=== PATIENT | female | born 1945 | race Caucasian/White ===

== ENCOUNTER 2022-08-26 23:44 | Inpatient (IN) | payer OTHER ==
[~2022-08-26] VITALS: Ht 160 cm; Wt 86.2 kg
[~2022-08-26 23:44] MED LIST: ALBUPOW26 INH; LISI-275 PO; METF-370 PO; PANT40TA2 PO; PROAIR; SIMV10TA84 PO
[2022-08-27] VITALS (10 sets, daily range): BP systolic 115–138; BP diastolic 74–90
[2022-08-27 00:14] LABS: Basophils # (auto) 0.1 10 ^3/uL (0-0.2); Basophils % (auto) 0.4 % (0.0-2.0); Eosinophils # (auto) 0 10 ^3/uL (0-0.8); Hematocrit 40.9 % (36.0-46.0); Hemoglobin 13.2 g/dL (12.2-16.2); Lymphocytes # (auto) 2.8 10 ^3/uL (0.4-5.4); Lymphocytes % (auto) 10.3 % (10.0-50.0); Mean Corpuscular Hemoglobin 29.5 pg (28.0-32.0); Mean Corpuscular Hgb Conc. 32.3 g/dL (32.0-36.0); Mean Corpuscular Volume 91.3 fL (80.0-100.0); Monocytes # (auto) 3.3 10 ^3/uL (0-1.3); Monocytes % (auto) 12.1 % (0.0-12.0); Neutrophils # (auto) 20.8 10 ^3/uL (1.6-8.6); Neutrophils % (auto) 77.2 % (37.0-80.0); Red Blood Cells 4.48 10^6/uL (4.0-5.20); Red Cell Distribution Width 13.3 % (11.8-14.3)
[2022-08-27 00:29] LABS: Albumin 2.7 g/dL (3.4-5.0); BUN/Creatinine Ratio 20.6; Calcium 8.8 mg/dL (8.5-10.1); Potassium 4.3 mmol/L (3.5-5.1)
[2022-08-27 00:31] LABS: INR 1.05 (0.9-1.15); Partial Thromboplastin Time 25.6 sec (24.6-33.4)
[2022-08-27 00:32] LABS: Bilirubin, Total 1.3 mg/dL (0.2-1.0); Total Protein 6.4 g/dL (6.4-8.2)
[2022-08-27] MEDS ORDERED: methylPREDNISolone SOD SUCC 125 MG/2 ML VL IV ONE (01:00)
[2022-08-27] MEDS ORDERED: ALBUTEROL SULF 2.5 MG/0.5ML(0.5%) NEB SOLN NEB ONE (01:00)
[2022-08-27] MEDS ORDERED: IPRATROPIUM BROM 0.5 MG/2.5ML INH SOL NEB ONE (01:00)
[2022-08-27] MEDS ORDERED: DOCUSATE SOD 100 MG CAP PO PRN (10:15)
[2022-08-27] MEDS ORDERED: DEXTROSE (50%) 50ML SYRG IV PRN (10:15)
[2022-08-27] MEDS ORDERED: ONDANSETRON HCL 4 MG/2 ML VIAL IV PRN (10:15)
[2022-08-27 12:05] LABS: Urine Specific Gravity 1.027 (1.001-1.035)
[2022-08-27 12:06] LABS: Urine Blood Negative /uL (Negative)
[2022-08-27] MEDS: InsuLIN REG 1unit/0.01ml Soln (100units/ml) SC SCH ×3 (12:09→23:11)
[2022-08-27] MEDS: ACCU-CHEK COMFORT CURVE STRIP VI SCH ×3 (12:10→22:52)
[2022-08-27] MEDS: methylPREDNISolone SOD SUCC 125 MG/2 ML VL IV SCH ×2 (14:35→22:51)
[2022-08-27] MEDS: LORazepam 2MG/ML-1ML VIAL IV PRN (17:25)
[2022-08-27] MEDS: ALBUTEROL SULF 2.5 MG/0.5ML(0.5%) NEB SOLN NEB PRN (18:28)
[2022-08-27] MEDS: PRAVASTATIN SODIUM 20 MG TAB PO SCH (22:52)
[2022-08-28] VITALS (7 sets, daily range): BP systolic 102–135; BP diastolic 42–83
[2022-08-28] MEDS: LORazepam 2MG/ML-1ML VIAL IV PRN ×2 (00:33→09:25)
[2022-08-28] MEDS: FLUTICASONE PROP NASAL SPR 0.05 % (50MCG) 16GM EACHNOSTRI SCH ×3 (00:35→21:23)
[2022-08-28] MEDS: IPRATROPIUM BROM 0.5 MG/2.5ML INH SOL NEB PRN ×2 (01:10→16:51)
[2022-08-28] MEDS: ALBUTEROL SULF 2.5 MG/0.5ML(0.5%) NEB SOLN NEB PRN ×2 (01:10→16:51)
[2022-08-28 05:49] LABS: Basophils # (auto) 0 10 ^3/uL (0-0.2); Basophils % (auto) 0.1 % (0.0-2.0); Eosinophils # (auto) 0 10 ^3/uL (0-0.8); Hematocrit 39.1 % (36.0-46.0); Hemoglobin 12.4 g/dL (12.2-16.2); Lymphocytes # (auto) 0.8 10 ^3/uL (0.4-5.4); Lymphocytes % (auto) 3.6 % (10.0-50.0); Mean Corpuscular Hgb Conc. 31.8 g/dL (32.0-36.0); Mean Corpuscular Volume 91.1 fL (80.0-100.0); Monocytes # (auto) 2.4 10 ^3/uL (0-1.3); Monocytes % (auto) 10.1 % (0.0-12.0); Neutrophils # (auto) 20.4 10 ^3/uL (1.6-8.6); Neutrophils % (auto) 86.2 % (37.0-80.0); Red Blood Cells 4.29 10^6/uL (4.0-5.20); Red Cell Distribution Width 12.9 % (11.8-14.3); White Blood Cell 23.7 10^3/uL (4.4-10.8)
[2022-08-28 05:50] LABS: Calcium 9.3 mg/dL (8.5-10.1); Potassium 4.7 mmol/L (3.5-5.1)
[2022-08-28 05:56] LABS: Albumin 2.4 g/dL (3.4-5.0); BUN/Creatinine Ratio 38.6; Bilirubin, Total 1.5 mg/dL (0.2-1.0); Total Protein 5.9 g/dL (6.4-8.2)
[2022-08-28] MEDS: methylPREDNISolone SOD SUCC 125 MG/2 ML VL IV SCH ×3 (06:15→21:52)
[2022-08-28] MEDS: InsuLIN REG 1unit/0.01ml Soln (100units/ml) SC SCH ×4 (06:27→21:49)
[2022-08-28] MEDS: ACCU-CHEK COMFORT CURVE STRIP VI SCH ×4 (06:28→21:43)
[2022-08-28] MEDS: PANTOPRAZOLE 40 MG TAB PO SCH (09:23)
[2022-08-28] MEDS: LISINOPRIL 5 MG TAB PO SCH (09:24)
[2022-08-28] MEDS: ENOXAPARIN SOD 40 MG/0.4 ML SYRINGE SC SCH (09:25)
[2022-08-28] MEDS: cefTRIAXone 1GM/50ML D5W 50 ML IV SCH (09:25)
[2022-08-28] MEDS: AZITHROMYCIN 500MG/ 250ML 250 ML IV SCH (12:28)
[2022-08-28] MEDS: PRAVASTATIN SODIUM 20 MG TAB PO SCH (21:51)
[2022-08-29 05:00] VITALS: BP 126/69
[2022-08-29 06:16] LABS: Hematocrit 38.7 % (36.0-46.0); Hemoglobin 12.7 g/dL (12.2-16.2); Mean Corpuscular Hemoglobin 29.7 pg (28.0-32.0); Mean Corpuscular Hgb Conc. 32.8 g/dL (32.0-36.0); Mean Corpuscular Volume 90.6 fL (80.0-100.0); Red Blood Cells 4.27 10^6/uL (4.0-5.20)
[2022-08-29] MEDS: methylPREDNISolone SOD SUCC 125 MG/2 ML VL IV SCH ×3 (06:19→23:55)
[2022-08-29 06:23] LABS: Basophils % (manual) 0 (0.0-2.0); Blast Cells 0; Eosinophils % (manual) 0 (0-7); Metamyelocytes % 0; Myelocytes % 0; Promyelocytes % 0; Reactive Lymphocytes 0
[2022-08-29] MEDS: ACCU-CHEK COMFORT CURVE STRIP VI SCH ×4 (06:34→22:00)
[2022-08-29] MEDS: InsuLIN REG 1unit/0.01ml Soln (100units/ml) SC SCH ×4 (06:38→23:53)
[2022-08-29 07:18] LABS: BUN/Creatinine Ratio 40.7; Magnesium 2.6 mg/dL (1.6-2.6); Potassium 4.9 mmol/L (3.5-5.1)
[2022-08-29] MEDS: LISINOPRIL 5 MG TAB PO SCH (08:21)
[2022-08-29] MEDS: PANTOPRAZOLE 40 MG TAB PO SCH (08:21)
[2022-08-29] MEDS: cefTRIAXone 1GM/50ML D5W 50 ML IV SCH (08:22)
[2022-08-29] MEDS: FLUTICASONE PROP NASAL SPR 0.05 % (50MCG) 16GM EACHNOSTRI SCH ×2 (08:22→22:00)
[2022-08-29] MEDS: AZITHROMYCIN 500MG/ 250ML 250 ML IV SCH (08:22)
[2022-08-29] MEDS: ENOXAPARIN SOD 40 MG/0.4 ML SYRINGE SC SCH (08:22)
[2022-08-29] MEDS: LORazepam 2MG/ML-1ML VIAL IV PRN (08:23)
[2022-08-29 08:45] VITALS: BP 141/77
[2022-08-29 10:44] LABS: Band Neutrophils % (manual) 46; Lymphocytes % (manual) 2 (10.0-50.0); Monocytes % (manual) 5 (0-12)
[2022-08-29] MEDS: HYDROcodone-ACET 5/325MG TAB PO PRN (11:27)
[2022-08-29 13:00] VITALS: BP 111/68
[2022-08-29] MEDS: ALPRAZolam 0.25 MG TAB PO PRN (15:05)
[2022-08-29] MEDS: IPRATROPIUM BROM 0.5 MG/2.5ML INH SOL NEB PRN (15:24)
[2022-08-29] MEDS: ALBUTEROL SULF 2.5 MG/0.5ML(0.5%) NEB SOLN NEB PRN (15:24)
[2022-08-29 17:00] VITALS: BP 124/65
[2022-08-29] MEDS: PRAVASTATIN SODIUM 20 MG TAB PO SCH (23:56)
[2022-08-30] VITALS (8 sets, daily range): BP systolic 118–168; BP diastolic 59–74
[2022-08-30] MEDS: ACCU-CHEK COMFORT CURVE STRIP VI SCH ×4 (07:04→21:44)
[2022-08-30] MEDS: InsuLIN REG 1unit/0.01ml Soln (100units/ml) SC SCH ×4 (07:07→21:51)
[2022-08-30] MEDS: methylPREDNISolone SOD SUCC 125 MG/2 ML VL IV SCH ×3 (07:09→21:40)
[2022-08-30] MEDS: cefTRIAXone 1GM/50ML D5W 50 ML IV SCH (08:24)
[2022-08-30] MEDS: ALPRAZolam 0.25 MG TAB PO PRN (08:24)
[2022-08-30] MEDS: FLUTICASONE PROP NASAL SPR 0.05 % (50MCG) 16GM EACHNOSTRI SCH ×2 (09:21→21:39)
[2022-08-30] MEDS: PANTOPRAZOLE 40 MG TAB PO SCH (09:21)
[2022-08-30] MEDS: LISINOPRIL 5 MG TAB PO SCH (09:21)
[2022-08-30] MEDS: AZITHROMYCIN 500MG/ 250ML 250 ML IV SCH (09:21)
[2022-08-30] MEDS: ENOXAPARIN SOD 40 MG/0.4 ML SYRINGE SC SCH (09:33)
[2022-08-30] MEDS: IPRATROPIUM BROM 0.5 MG/2.5ML INH SOL NEB PRN (09:55)
[2022-08-30] MEDS: ALBUTEROL SULF 2.5 MG/0.5ML(0.5%) NEB SOLN NEB PRN (09:55)
[2022-08-30] MEDS: ALBUTEROL SULF 2.5 MG/0.5ML(0.5%) NEB SOLN NEB SCH ×4 (10:00→22:27)
[2022-08-30] MEDS: IPRATROPIUM BROM 0.5 MG/2.5ML INH SOL NEB SCH ×4 (10:00→22:27)
[2022-08-30] MEDS: SALINE 0.65 % NASAL SPRAY 45ML BOTTLE EACHNOSTRI SCH ×3 (11:43→21:39)
[2022-08-30] MEDS: PRAVASTATIN SODIUM 20 MG TAB PO SCH (21:40)
[2022-08-31] MEDS: HYDROcodone-ACET 5/325MG TAB PO PRN (04:17)
[2022-08-31 05:32] VITALS: BP 149/84
[2022-08-31] MEDS: SALINE 0.65 % NASAL SPRAY 45ML BOTTLE EACHNOSTRI SCH ×4 (05:41→22:10)
[2022-08-31] MEDS: ALBUTEROL SULF 2.5 MG/0.5ML(0.5%) NEB SOLN NEB SCH ×5 (06:08→22:04)
[2022-08-31] MEDS: IPRATROPIUM BROM 0.5 MG/2.5ML INH SOL NEB SCH ×5 (06:08→22:04)
[2022-08-31] MEDS: ACCU-CHEK COMFORT CURVE STRIP VI SCH ×4 (06:12→22:20)
[2022-08-31] MEDS: InsuLIN REG 1unit/0.01ml Soln (100units/ml) SC SCH ×4 (06:13→22:21)
[2022-08-31 06:24] LABS: Hematocrit 38.7 % (36.0-46.0); Hemoglobin 12.4 g/dL (12.2-16.2); Mean Corpuscular Hemoglobin 29.3 pg (28.0-32.0); Mean Corpuscular Volume 91.6 fL (80.0-100.0); Red Blood Cells 4.23 10^6/uL (4.0-5.20); Red Cell Distribution Width 12.8 % (11.8-14.3); White Blood Cell 24.3 10^3/uL (4.4-10.8)
[2022-08-31 06:29] LABS: Potassium 5.2 mmol/L (3.5-5.1)
[2022-08-31 06:38] LABS: BUN/Creatinine Ratio 33.8; Magnesium 2.2 mg/dL (1.6-2.6)
[2022-08-31 07:02] LABS: Basophils % (manual) 0 (0.0-2.0); Blast Cells 0; Eosinophils % (manual) 0 (0-7); Metamyelocytes % 0; Myelocytes % 0; Promyelocytes % 0; Reactive Lymphocytes 0
[2022-08-31] MEDS: ALPRAZolam 0.25 MG TAB PO PRN ×2 (08:47→22:10)
[2022-08-31] MEDS: cefTRIAXone 1GM/50ML D5W 50 ML IV SCH (08:47)
[2022-08-31 09:00] VITALS: BP 138/80
[2022-08-31] MEDS: LISINOPRIL 5 MG TAB PO SCH (09:46)
[2022-08-31] MEDS: methylPREDNISolone SOD SUCC 125 MG/2 ML VL IV SCH ×2 (09:46→22:10)
[2022-08-31] MEDS: AZITHROMYCIN 500MG/ 250ML 250 ML IV SCH (09:47)
[2022-08-31] MEDS: PANTOPRAZOLE 40 MG TAB PO SCH (09:47)
[2022-08-31] MEDS: FLUTICASONE PROP NASAL SPR 0.05 % (50MCG) 16GM EACHNOSTRI SCH ×2 (09:47→22:10)
[2022-08-31] MEDS: ENOXAPARIN SOD 40 MG/0.4 ML SYRINGE SC SCH (09:48)
[2022-08-31 10:01] LABS: Band Neutrophils % (manual) 10; Lymphocytes % (manual) 8 (10.0-50.0); Monocytes % (manual) 2 (0-12)
[2022-08-31] MEDS ORDERED: FUROSEMIDE 40 MG/4 ML VIAL IV ONE (12:30)
[2022-08-31 13:00] VITALS: BP 165/83
[2022-08-31 16:37] VITALS: BP 162/85
[2022-08-31 20:00] VITALS: BP 144/87
[2022-08-31 22:00] VITALS: BP 144/87
[2022-08-31] MEDS: PRAVASTATIN SODIUM 20 MG TAB PO SCH (22:10)
[2022-09-01 05:00] VITALS: BP 130/79
[2022-09-01] MEDS: SALINE 0.65 % NASAL SPRAY 45ML BOTTLE EACHNOSTRI SCH ×4 (05:45→21:21)
[2022-09-01] MEDS: ACCU-CHEK COMFORT CURVE STRIP VI SCH ×4 (06:21→21:21)
[2022-09-01] MEDS: InsuLIN REG 1unit/0.01ml Soln (100units/ml) SC SCH ×4 (06:27→21:24)
[2022-09-01 06:30] LABS: Hematocrit 39.5 % (36.0-46.0); Hemoglobin 12.9 g/dL (12.2-16.2); Mean Corpuscular Hemoglobin 29.7 pg (28.0-32.0); Mean Corpuscular Hgb Conc. 32.6 g/dL (32.0-36.0); Red Blood Cells 4.34 10^6/uL (4.0-5.20); White Blood Cell 17.2 10^3/uL (4.4-10.8)
[2022-09-01 06:38] LABS: Basophils % (manual) 0 (0.0-2.0); Blast Cells 0; Eosinophils % (manual) 0 (0-7); Promyelocytes % 0; Reactive Lymphocytes 0
[2022-09-01] MEDS: ALBUTEROL SULF 2.5 MG/0.5ML(0.5%) NEB SOLN NEB SCH ×5 (06:38→23:02)
[2022-09-01] MEDS: IPRATROPIUM BROM 0.5 MG/2.5ML INH SOL NEB SCH ×5 (06:38→23:03)
[2022-09-01 06:53] LABS: Calcium 8.9 mg/dL (8.5-10.1); Potassium 4.6 mmol/L (3.5-5.1)
[2022-09-01 06:55] LABS: BUN/Creatinine Ratio 37.5
[2022-09-01 08:19] LABS: Band Neutrophils % (manual) 3; Lymphocytes % (manual) 6 (10.0-50.0); Metamyelocytes % 1; Monocytes % (manual) 4 (0-12); Myelocytes % 2
[2022-09-01] MEDS: ALPRAZolam 0.25 MG TAB PO PRN ×2 (08:44→16:41)
[2022-09-01] MEDS: cefTRIAXone 1GM/50ML D5W 50 ML IV SCH (08:44)
[2022-09-01 09:00] VITALS: BP 161/80
[2022-09-01] MEDS: methylPREDNISolone SOD SUCC 125 MG/2 ML VL IV SCH ×2 (10:29→21:22)
[2022-09-01] MEDS: PANTOPRAZOLE 40 MG TAB PO SCH (10:29)
[2022-09-01] MEDS: LISINOPRIL 5 MG TAB PO SCH (10:29)
[2022-09-01] MEDS: AZITHROMYCIN 500MG/ 250ML 250 ML IV SCH (10:30)
[2022-09-01] MEDS: FLUTICASONE PROP NASAL SPR 0.05 % (50MCG) 16GM EACHNOSTRI SCH ×2 (10:30→21:20)
[2022-09-01] MEDS: ENOXAPARIN SOD 40 MG/0.4 ML SYRINGE SC SCH (11:57)
[2022-09-01 13:00] VITALS: BP 138/99
[2022-09-01] MEDS: ACETYLCYSTEINE 20%(200MG/ML) SOL 4ML NEB SCH ×2 (14:00→23:03)
[2022-09-01 16:40] VITALS: BP 121/76
[2022-09-01 20:00] VITALS: BP 144/73
[2022-09-01] MEDS: PRAVASTATIN SODIUM 20 MG TAB PO SCH (21:21)
[2022-09-01 22:00] VITALS: BP 139/73
[2022-09-02 04:58] VITALS: BP 121/76
[2022-09-02 06:23] LABS: Hematocrit 39.7 % (36.0-46.0); Hemoglobin 12.7 g/dL (12.2-16.2); Mean Corpuscular Hemoglobin 29.3 pg (28.0-32.0); Mean Corpuscular Volume 91.7 fL (80.0-100.0); Red Blood Cells 4.33 10^6/uL (4.0-5.20); White Blood Cell 15.9 10^3/uL (4.4-10.8)
[2022-09-02 06:37] LABS: Basophils % (manual) 0 (0.0-2.0); Blast Cells 0; Eosinophils % (manual) 0 (0-7); Metamyelocytes % 0; Myelocytes % 0; Promyelocytes % 0; Reactive Lymphocytes 0
[2022-09-02] MEDS: ACCU-CHEK COMFORT CURVE STRIP VI SCH ×4 (06:39→21:51)
[2022-09-02] MEDS: SALINE 0.65 % NASAL SPRAY 45ML BOTTLE EACHNOSTRI SCH ×4 (06:39→21:50)
[2022-09-02] MEDS: InsuLIN REG 1unit/0.01ml Soln (100units/ml) SC SCH ×4 (06:43→21:59)
[2022-09-02 06:49] LABS: Calcium 8.7 mg/dL (8.5-10.1); Magnesium 2.1 mg/dL (1.6-2.6); Potassium 4.9 mmol/L (3.5-5.1)
[2022-09-02 06:51] LABS: BUN/Creatinine Ratio 38.7
[2022-09-02] MEDS: ALBUTEROL SULF 2.5 MG/0.5ML(0.5%) NEB SOLN NEB SCH ×6 (07:10→22:30)
[2022-09-02] MEDS: IPRATROPIUM BROM 0.5 MG/2.5ML INH SOL NEB SCH ×6 (07:10→22:30)
[2022-09-02] MEDS: ACETYLCYSTEINE 20%(200MG/ML) SOL 4ML NEB SCH ×4 (07:11→22:30)
[2022-09-02 08:00] VITALS: BP 121/82
[2022-09-02 08:22] LABS: Band Neutrophils % (manual) 13; Lymphocytes % (manual) 8 (10.0-50.0); Monocytes % (manual) 7 (0-12)
[2022-09-02 09:00] VITALS: BP 121/82
[2022-09-02] MEDS: LISINOPRIL 5 MG TAB PO SCH (09:15)
[2022-09-02] MEDS: PANTOPRAZOLE 40 MG TAB PO SCH (09:15)
[2022-09-02] MEDS: ENOXAPARIN SOD 40 MG/0.4 ML SYRINGE SC SCH (09:16)
[2022-09-02] MEDS: cefTRIAXone 1GM/50ML D5W 50 ML IV SCH (09:17)
[2022-09-02] MEDS: methylPREDNISolone SOD SUCC 125 MG/2 ML VL IV SCH ×2 (09:17→22:00)
[2022-09-02] MEDS: AZITHROMYCIN 500MG/ 250ML 250 ML IV SCH (09:18)
[2022-09-02] MEDS: FLUTICASONE PROP NASAL SPR 0.05 % (50MCG) 16GM EACHNOSTRI SCH ×2 (09:19→21:50)
[2022-09-02] MEDS: ALPRAZolam 0.25 MG TAB PO PRN (09:35)
[2022-09-02] MEDS ORDERED: TEMAZEPAM 15 MG CAP PO PRN (12:00)
[2022-09-02 13:00] VITALS: BP 132/81
[2022-09-02 16:29] VITALS: BP 144/92
[2022-09-02 21:59] VITALS: BP 134/75
[2022-09-02] MEDS: PRAVASTATIN SODIUM 20 MG TAB PO SCH (22:00)
[2022-09-03] MEDS: HYDROcodone-ACET 5/325MG TAB PO PRN ×3 (01:42→15:02)
[2022-09-03 04:43] VITALS: BP 121/75
[2022-09-03] MEDS: SALINE 0.65 % NASAL SPRAY 45ML BOTTLE EACHNOSTRI SCH ×3 (05:50→21:46)
[2022-09-03] MEDS: ACCU-CHEK COMFORT CURVE STRIP VI SCH ×4 (06:01→21:39)
[2022-09-03] MEDS: InsuLIN REG 1unit/0.01ml Soln (100units/ml) SC SCH ×4 (06:05→21:45)
[2022-09-03 09:00] VITALS: BP 117/77
[2022-09-03] MEDS: LISINOPRIL 5 MG TAB PO SCH (09:01)
[2022-09-03] MEDS: PANTOPRAZOLE 40 MG TAB PO SCH (09:01)
[2022-09-03] MEDS: methylPREDNISolone SOD SUCC 125 MG/2 ML VL IV SCH ×2 (09:02→21:27)
[2022-09-03] MEDS: cefTRIAXone 1GM/50ML D5W 50 ML IV SCH (09:02)
[2022-09-03] MEDS: AZITHROMYCIN 500MG/ 250ML 250 ML IV SCH (09:02)
[2022-09-03] MEDS: ENOXAPARIN SOD 40 MG/0.4 ML SYRINGE SC SCH (09:03)
[2022-09-03] MEDS: FLUTICASONE PROP NASAL SPR 0.05 % (50MCG) 16GM EACHNOSTRI SCH ×2 (12:39→21:46)
[2022-09-03 13:00] VITALS: BP 106/65
[2022-09-03] MEDS: ALBUTEROL SULF 2.5 MG/0.5ML(0.5%) NEB SOLN NEB SCH ×5 (16:07→22:36)
[2022-09-03] MEDS: IPRATROPIUM BROM 0.5 MG/2.5ML INH SOL NEB SCH ×5 (16:07→22:36)
[2022-09-03] MEDS: ACETYLCYSTEINE 20%(200MG/ML) SOL 4ML NEB SCH ×2 (16:08→22:36)
[2022-09-03 17:00] VITALS: BP 101/60
[2022-09-03] MEDS: PRAVASTATIN SODIUM 20 MG TAB PO SCH (21:28)
[2022-09-03 22:00] VITALS: BP 126/72
[2022-09-04] MEDS: HYDROcodone-ACET 5/325MG TAB PO PRN (02:14)
[2022-09-04 05:00] VITALS: BP 143/78
[2022-09-04] MEDS: SALINE 0.65 % NASAL SPRAY 45ML BOTTLE EACHNOSTRI SCH ×4 (05:47→21:46)
[2022-09-04] MEDS: ACCU-CHEK COMFORT CURVE STRIP VI SCH ×4 (05:48→21:50)
[2022-09-04] MEDS: InsuLIN REG 1unit/0.01ml Soln (100units/ml) SC SCH ×4 (05:52→22:02)
[2022-09-04] MEDS: IPRATROPIUM BROM 0.5 MG/2.5ML INH SOL NEB SCH ×5 (06:30→22:11)
[2022-09-04] MEDS: ACETYLCYSTEINE 20%(200MG/ML) SOL 4ML NEB SCH ×3 (06:30→18:31)
[2022-09-04] MEDS: ALBUTEROL SULF 2.5 MG/0.5ML(0.5%) NEB SOLN NEB SCH ×5 (06:30→22:11)
[2022-09-04 09:00] VITALS: BP 116/70
[2022-09-04] MEDS ORDERED: NICOTINE 7MG/24HR TOPICAL PATCH TD ONE (10:15)
[2022-09-04] MEDS: PANTOPRAZOLE 40 MG TAB PO SCH (10:54)
[2022-09-04] MEDS: cefTRIAXone 1GM/50ML D5W 50 ML IV SCH (10:54)
[2022-09-04] MEDS: FLUTICASONE PROP NASAL SPR 0.05 % (50MCG) 16GM EACHNOSTRI SCH ×2 (10:54→21:46)
[2022-09-04] MEDS: LISINOPRIL 5 MG TAB PO SCH (10:54)
[2022-09-04] MEDS: ENOXAPARIN SOD 40 MG/0.4 ML SYRINGE SC SCH (10:55)
[2022-09-04] MEDS: NICOTINE 14 MG/24HR TOPICAL PATCH TD SCH (10:58)
[2022-09-04] MEDS: methylPREDNISolone SOD SUCC 125 MG/2 ML VL IV SCH ×2 (11:00→21:50)
[2022-09-04 13:00] VITALS: BP 116/65
[2022-09-04] MEDS: AZITHROMYCIN 500MG/ 250ML 250 ML IV SCH (13:22)
[2022-09-04 17:00] VITALS: BP 129/66
[2022-09-04] MEDS: PRAVASTATIN SODIUM 20 MG TAB PO SCH (21:50)
[2022-09-04 22:00] VITALS: BP 146/72
[2022-09-05] MEDS: ALPRAZolam 0.25 MG TAB PO PRN (00:57)
[2022-09-05] MEDS: ACCU-CHEK COMFORT CURVE STRIP VI SCH ×4 (04:43→21:54)
[2022-09-05] MEDS: InsuLIN REG 1unit/0.01ml Soln (100units/ml) SC SCH ×4 (04:43→22:27)
[2022-09-05] MEDS: SALINE 0.65 % NASAL SPRAY 45ML BOTTLE EACHNOSTRI SCH ×4 (04:43→21:53)
[2022-09-05 05:00] VITALS: BP 132/79
[2022-09-05 08:11] VITALS: BP 144/79
[2022-09-05] MEDS: cefTRIAXone 1GM/50ML D5W 50 ML IV SCH (09:14)
[2022-09-05] MEDS: ENOXAPARIN SOD 40 MG/0.4 ML SYRINGE SC SCH (09:15)
[2022-09-05] MEDS: methylPREDNISolone SOD SUCC 125 MG/2 ML VL IV SCH ×2 (09:15→21:53)
[2022-09-05] MEDS: PANTOPRAZOLE 40 MG TAB PO SCH (09:15)
[2022-09-05] MEDS: LISINOPRIL 5 MG TAB PO SCH (09:16)
[2022-09-05] MEDS: FLUTICASONE PROP NASAL SPR 0.05 % (50MCG) 16GM EACHNOSTRI SCH ×2 (09:17→21:53)
[2022-09-05] MEDS: NICOTINE 7MG/24HR TOPICAL PATCH TD SCH (09:17)
[2022-09-05] MEDS: NICOTINE 14 MG/24HR TOPICAL PATCH TD SCH (09:32)
[2022-09-05] MEDS: AZITHROMYCIN 500MG/ 250ML 250 ML IV SCH (12:10)
[2022-09-05 13:05] VITALS: BP 134/73
[2022-09-05] MEDS: IPRATROPIUM BROM 0.5 MG/2.5ML INH SOL NEB SCH ×5 (15:54→22:14)
[2022-09-05] MEDS: ALBUTEROL SULF 2.5 MG/0.5ML(0.5%) NEB SOLN NEB SCH ×5 (15:54→22:14)
[2022-09-05] MEDS: ACETYLCYSTEINE 20%(200MG/ML) SOL 4ML NEB SCH ×3 (15:55→20:37)
[2022-09-05 16:21] VITALS: BP 134/73
[2022-09-05 17:00] VITALS: BP 119/63
[2022-09-05] MEDS ORDERED: ALBUTEROL MEDNEB 2.5 mg/3ml NEB ONE (18:59)
[2022-09-05] MEDS: PRAVASTATIN SODIUM 20 MG TAB PO SCH (21:54)
[2022-09-05 22:00] VITALS: BP 118/60
[2022-09-06 05:00] VITALS: BP 129/70
[2022-09-06] MEDS ORDERED: ALBUTEROL MEDNEB 2.5 mg/3ml NEB ONE ×4 (06:12→18:05)
[2022-09-06] MEDS: SALINE 0.65 % NASAL SPRAY 45ML BOTTLE EACHNOSTRI SCH ×3 (06:29→18:13)
[2022-09-06] MEDS: ACCU-CHEK COMFORT CURVE STRIP VI SCH ×3 (06:30→18:13)
[2022-09-06] MEDS: InsuLIN REG 1unit/0.01ml Soln (100units/ml) SC SCH ×3 (06:30→18:13)
[2022-09-06] MEDS: IPRATROPIUM BROM 0.5 MG/2.5ML INH SOL NEB SCH ×4 (06:57→18:27)
[2022-09-06] MEDS: ALBUTEROL SULF 2.5 MG/0.5ML(0.5%) NEB SOLN NEB SCH ×4 (06:58→18:27)
[2022-09-06] MEDS: ACETYLCYSTEINE 20%(200MG/ML) SOL 4ML NEB SCH ×3 (06:58→18:27)
[2022-09-06 07:17] LABS: Hematocrit 40.4 % (36.0-46.0); Hemoglobin 13.3 g/dL (12.2-16.2); Mean Corpuscular Hemoglobin 30.2 pg (28.0-32.0); Mean Corpuscular Hgb Conc. 32.9 g/dL (32.0-36.0); Mean Corpuscular Volume 92.1 fL (80.0-100.0); Red Blood Cells 4.39 10^6/uL (4.0-5.20); Red Cell Distribution Width 13.3 % (11.8-14.3); White Blood Cell 17.5 10^3/uL (4.4-10.8)
[2022-09-06 08:22] LABS: Basophils % (manual) 0 (0.0-2.0); Blast Cells 0; Eosinophils % (manual) 0 (0-7); Myelocytes % 0; Promyelocytes % 0; Reactive Lymphocytes 0
[2022-09-06] MEDS: cefTRIAXone 1GM/50ML D5W 50 ML IV SCH (08:53)
[2022-09-06 09:00] VITALS: BP 137/75
[2022-09-06] MEDS: NICOTINE 14 MG/24HR TOPICAL PATCH TD SCH (10:00)
[2022-09-06] MEDS: LISINOPRIL 5 MG TAB PO SCH (10:27)
[2022-09-06] MEDS: FLUTICASONE PROP NASAL SPR 0.05 % (50MCG) 16GM EACHNOSTRI SCH (10:27)
[2022-09-06] MEDS: methylPREDNISolone SOD SUCC 125 MG/2 ML VL IV SCH (10:27)
[2022-09-06] MEDS: PANTOPRAZOLE 40 MG TAB PO SCH (10:27)
[2022-09-06] MEDS: NICOTINE 7MG/24HR TOPICAL PATCH TD SCH (10:28)
[2022-09-06] MEDS: ENOXAPARIN SOD 40 MG/0.4 ML SYRINGE SC SCH (10:28)
[2022-09-06] MEDS ORDERED: ALPR0.25 PO (11:40)
[2022-09-06] MEDS ORDERED: NYS5LQ MT (11:40)
[2022-09-06] MEDS ORDERED: METH4PAK PO (11:40)
[2022-09-06] MEDS ORDERED: HYDR-4902 PO (11:40)
[2022-09-06] MEDS: AZITHROMYCIN 500MG/ 250ML 250 ML IV SCH (12:48)
[2022-09-06] MEDS: NYSTATIN (MOUTH-THROAT) 500,000 UNITS/5 ML SUSP MT SCH ×2 (12:50→18:13)
[2022-09-06 13:00] VITALS: BP 120/65
[2022-09-06 13:39] LABS: BUN/Creatinine Ratio 34.2; Calcium 8.2 mg/dL (8.5-10.1); Potassium 4.3 mmol/L (3.5-5.1)
[2022-09-06 15:11] VITALS: BP 134/75
[2022-09-06 16:07] LABS: Band Neutrophils % (manual) 1; Lymphocytes % (manual) 10 (10.0-50.0); Metamyelocytes % 2; Monocytes % (manual) 7 (0-12)
[2022-09-06 17:00] VITALS: BP 167/84
== END 2022-09-06 20:00 | disposition home or self-care (01) | DRG 193 ==
LOC: EDBD 23:44 → EDUNIT# 23:44 → ER 23:44 → OVERFLOW 08-27 10:09 → WEST WING 08-27 23:39 → TELE-WESTW 08-28 19:54
PROVIDERS: ADMIT Nurse Practitioner Family; ATTEND Internal Medicine Geriatric Medicine
PROC: 5A09357 Assistance with Respiratory Ventilation, Less than 24 Consecutive Hours, Continuous Positive Airway Pressure (ICD-10-PCS; principal; 2022-08-26)
PROC: 5A09357 Assistance with Respiratory Ventilation, Less than 24 Consecutive Hours, Continuous Positive Airway Pressure (ICD-10-PCS; 2022-08-28)
DX: J15.9 Unspecified bacterial pneumonia (principal); J96.21 Acute and chronic respiratory failure with hypoxia; E44.0 Moderate protein-calorie malnutrition; J44.0 Chronic obstructive pulmonary disease with (acute) lower respiratory infection; J44.1 Chronic obstructive pulmonary disease with (acute) exacerbation; B37.0 Candidal stomatitis; J98.11 Atelectasis; E78.5 Hyperlipidemia, unspecified; F17.210 Nicotine dependence, cigarettes, uncomplicated; I10 Essential (primary) hypertension; E11.9 Type 2 diabetes mellitus without complications; E87.5 Hyperkalemia; F41.9 Anxiety disorder, unspecified; G47.00 Insomnia, unspecified; D72.829 Elevated white blood cell count, unspecified; T38.0X5A Adverse effect of glucocorticoids and synthetic analogues, initial encounter; K46.9 Unspecified abdominal hernia without obstruction or gangrene; Z20.822 Contact with and (suspected) exposure to COVID-19; Z68.33 Body mass index [BMI] 33.0-33.9, adult; Z88.5 Allergy status to narcotic agent; Z99.81 Dependence on supplemental oxygen; Y92.89 Other specified places as the place of occurrence of the external cause
CPT/HCPCS: 36415; 36600; 71045; 80048; 80053; 81003; 82805; 82962; 83036; 83605; 83735; 83880; 84484; 85007; 85025; 85027; 85610; 85730; 87040; 87426; 93005; 94640; 94660; 96374; 97110; 97116; 97163; 97530; G0378; J0696; J1815

== ENCOUNTER 2022-11-02 17:35 | Inpatient (IN) | payer OTHER ==
[~2022-11-02] VITALS: Ht 152.4 cm; Wt 60.5 kg
[~2022-11-02 17:35] MED LIST changes: +ALPR0.25 PO; +HYDR-4902 PO; +METH4PAK PO; +NYS5LQ MT
[2022-11-02 18:53] LABS: Calcium 9.2 mg/dL (8.5-10.1); Potassium 4.3 mmol/L (3.5-5.1)
[2022-11-02 18:56] LABS: BUN/Creatinine Ratio 19.7
[2022-11-02 18:59] LABS: Bilirubin, Total 0.5 mg/dL (0.2-1.0); Total Protein 6.9 g/dL (6.4-8.2)
[2022-11-02 19:01] LABS: Basophils # (auto) 0.1 10 ^3/uL (0-0.2); Basophils % (auto) 0.9 % (0.0-2.0); Eosinophils # (auto) 0.1 10 ^3/uL (0-0.8); Eosinophils % (auto) 1.2 % (0.0-7.0); Hematocrit 40.1 % (36.0-46.0); Hemoglobin 13.3 g/dL (12.2-16.2); Lymphocytes # (auto) 2.5 10 ^3/uL (0.4-5.4); Lymphocytes % (auto) 23.3 % (10.0-50.0); Mean Corpuscular Hemoglobin 29.8 pg (28.0-32.0); Mean Corpuscular Hgb Conc. 33.1 g/dL (32.0-36.0); Mean Corpuscular Volume 90.1 fL (80.0-100.0); Neutrophils % (auto) 65.6 % (37.0-80.0); Nucleated Red Blood Cells % 0.1 %; Red Blood Cells 4.45 10^6/uL (4.0-5.20); Red Cell Distribution Width 14.6 % (11.8-14.3); White Blood Cell 10.7 10^3/uL (4.4-10.8)
[2022-11-02 19:20] LABS: INR 0.95 (0.9-1.15); Partial Thromboplastin Time 23.4 sec (24.6-33.4)
[2022-11-03] MEDS ORDERED: OXYCODONE W/ ACETAMINOPHEN 5/325MG TABLET PO ONE (00:15)
[2022-11-03] MEDS ORDERED: ALBUTEROL SULF 2.5 MG/0.5ML(0.5%) NEB SOLN NEB ONE (00:15)
[2022-11-03] MEDS ORDERED: IPRATROPIUM BROM 0.5 MG/2.5ML INH SOL NEB ONE (00:15)
[2022-11-03] MEDS ORDERED: ALBUTEROL MEDNEB 2.5 mg/3ml NEB ONE ×3 (00:16→19:12)
[2022-11-03] MEDS ORDERED: cefTRIAXone 1GM/50ML D5W 50 ML IV ONE (02:15)
[2022-11-03] MEDS ORDERED: AZITHROMYCIN 200 MG/5 ML ORAL SUSP PO ONE (02:15)
[2022-11-03] MEDS ORDERED: AZITHROMYCIN 250 MG TAB PO ONE (03:15)
[2022-11-03] MEDS ORDERED: ONDANSETRON HCL 4 MG/2 ML VIAL IV PRN (04:30)
[2022-11-03] MEDS ORDERED: DEXTROSE (50%) 50ML SYRG IV PRN (04:30)
[2022-11-03] MEDS ORDERED: ALBUTEROL SULF 2.5 MG/0.5ML(0.5%) NEB SOLN NEB PRN (04:30)
[2022-11-03] MEDS ORDERED: IPRATROPIUM BROM 0.5 MG/2.5ML INH SOL NEB PRN (04:30)
[2022-11-03] MEDS: InsuLIN REG 1unit/0.01ml Soln (100units/ml) SC SCH ×4 (07:00→23:32)
[2022-11-03] MEDS: ACCU-CHEK COMFORT CURVE STRIP VI SCH ×4 (07:16→22:00)
[2022-11-03] MEDS ORDERED: NITROGLYCERIN 0.4 MG SL TAB SL PRN (09:45)
[2022-11-03] MEDS ORDERED: MORPHINE SULFATE INJ 2 MG/ml SYRG IV PRN (09:45)
[2022-11-03] MEDS ORDERED: methylPREDNISolone SOD SUCC 125 MG/2 ML VL IV ONE (10:00)
[2022-11-03] MEDS ORDERED: HYDROcodone-ACET 5/325MG TAB PO PRN (10:00)
[2022-11-03] MEDS ORDERED: ALPRAZolam 0.25 MG TAB PO PRN (10:00)
[2022-11-03] MEDS ORDERED: ACETAMINOPHEN 325 MG TAB PO PRN (10:00)
[2022-11-03] MEDS: AZITHROMYCIN 500MG/ 250ML 250 ML IV SCH (10:01)
[2022-11-03] MEDS: ENOXAPARIN SOD 40 MG/0.4 ML SYRINGE SC SCH (10:01)
[2022-11-03] MEDS: PANTOPRAZOLE 40 MG/10 ML VIAL INJ IV SCH (10:03)
[2022-11-03] MEDS: LISINOPRIL 5 MG TAB PO SCH (10:26)
[2022-11-03] MEDS: ALBUTEROL SULF 2.5 MG/0.5ML(0.5%) NEB SOLN NEB PRN ×2 (13:54→19:37)
[2022-11-03 15:14] VITALS: BP 123/70
[2022-11-03 16:51] VITALS: BP 100/66
[2022-11-03] MEDS: metFORMIN HYDROCHLORIDE 500 MG TAB PO SCH (18:00)
[2022-11-03] MEDS: IPRATROPIUM BROM 0.5 MG/2.5ML INH SOL NEB PRN (19:37)
[2022-11-03 21:20] VITALS: BP 101/60
[2022-11-03] MEDS: cefTRIAXone 1GM/50ML D5W 50 ML IV SCH (21:46)
[2022-11-03] MEDS: ATORVASTATIN 20 MG TAB PO SCH (21:46)
[2022-11-03] MEDS: methylPREDNISolone SOD SUCC 125 MG/2 ML VL IV SCH (21:46)
[2022-11-03 22:00] VITALS: BP 101/60
[2022-11-03] MEDS ORDERED: ATORVASTATIN 20 MG TAB PO SCH (22:00)
[2022-11-04 05:00] VITALS: BP 123/70
[2022-11-04] MEDS: ACCU-CHEK COMFORT CURVE STRIP VI SCH ×4 (06:18→21:55)
[2022-11-04] MEDS: InsuLIN REG 1unit/0.01ml Soln (100units/ml) SC SCH ×4 (06:23→22:00)
[2022-11-04 08:00] VITALS: BP 145/82
[2022-11-04 09:00] VITALS: BP 145/82
[2022-11-04] MEDS: PANTOPRAZOLE 40 MG/10 ML VIAL INJ IV SCH (09:46)
[2022-11-04] MEDS: AZITHROMYCIN 500MG/ 250ML 250 ML IV SCH ×2 (09:46→13:54)
[2022-11-04] MEDS: methylPREDNISolone SOD SUCC 125 MG/2 ML VL IV SCH ×2 (09:47→21:54)
[2022-11-04] MEDS: ENOXAPARIN SOD 40 MG/0.4 ML SYRINGE SC SCH (09:47)
[2022-11-04] MEDS: metFORMIN HYDROCHLORIDE 500 MG TAB PO SCH ×2 (09:48→18:57)
[2022-11-04] MEDS: LISINOPRIL 5 MG TAB PO SCH (09:49)
[2022-11-04 10:02] LABS: Basophils # (auto) 0.1 10 ^3/uL (0-0.2); Basophils % (auto) 0.8 % (0.0-2.0); Eosinophils # (auto) 0 10 ^3/uL (0-0.8); Hematocrit 37.5 % (36.0-46.0); Lymphocytes # (auto) 1.4 10 ^3/uL (0.4-5.4); Mean Corpuscular Volume 90.7 fL (80.0-100.0); Monocytes # (auto) 0.9 10 ^3/uL (0-1.3); Monocytes % (auto) 7.3 % (0.0-12.0); Neutrophils # (auto) 10.1 10 ^3/uL (1.6-8.6); Neutrophils % (auto) 80.9 % (37.0-80.0); Nucleated Red Blood Cells % 0.1 %; Red Blood Cells 4.13 10^6/uL (4.0-5.20); Red Cell Distribution Width 14.8 % (11.8-14.3); White Blood Cell 12.4 10^3/uL (4.4-10.8)
[2022-11-04 10:28] LABS: Calcium 8.9 mg/dL (8.5-10.1); Magnesium 2.3 mg/dL (1.6-2.6); Potassium 4.5 mmol/L (3.5-5.1)
[2022-11-04 13:00] VITALS: BP 130/71
[2022-11-04] MEDS: ZINC SULFATE 220mg CAP or TAB PO SCH (13:55)
[2022-11-04] MEDS: CHOLECALCIFEROL (VITD3) 2,000 UNIT CAP/TAB PO SCH (13:55)
[2022-11-04] MEDS: ASCORBIC ACID 500 MG TAB PO SCH ×2 (13:55→21:54)
[2022-11-04] MEDS ORDERED: ALBUTEROL MEDNEB 2.5 mg/3ml NEB ONE (14:21)
[2022-11-04] MEDS: ALBUTEROL SULF 2.5 MG/0.5ML(0.5%) NEB SOLN NEB PRN (14:29)
[2022-11-04] MEDS: IPRATROPIUM BROM 0.5 MG/2.5ML INH SOL NEB PRN (14:30)
[2022-11-04 16:39] VITALS: BP 131/74
[2022-11-04] MEDS: cefTRIAXone 1GM/50ML D5W 50 ML IV SCH (21:54)
[2022-11-04] MEDS: ATORVASTATIN 20 MG TAB PO SCH (21:55)
[2022-11-04 22:00] VITALS: BP 121/81
[2022-11-05 05:00] VITALS: BP 132/78
[2022-11-05] MEDS: ACCU-CHEK COMFORT CURVE STRIP VI SCH ×4 (07:01→21:39)
[2022-11-05] MEDS: InsuLIN REG 1unit/0.01ml Soln (100units/ml) SC SCH ×4 (07:08→21:47)
[2022-11-05] MEDS ORDERED: ALBUTEROL MEDNEB 2.5 mg/3ml NEB ONE ×3 (07:24→18:30)
[2022-11-05 07:30] VITALS: BP 145/82
[2022-11-05] MEDS: IPRATROPIUM BROM 0.5 MG/2.5ML INH SOL NEB PRN ×2 (07:33→14:52)
[2022-11-05] MEDS: ALBUTEROL SULF 2.5 MG/0.5ML(0.5%) NEB SOLN NEB PRN ×2 (07:33→14:52)
[2022-11-05 10:00] VITALS: BP 137/83
[2022-11-05] MEDS: CHOLECALCIFEROL (VITD3) 2,000 UNIT CAP/TAB PO SCH (10:09)
[2022-11-05] MEDS: ASCORBIC ACID 500 MG TAB PO SCH ×2 (10:09→21:49)
[2022-11-05] MEDS: PANTOPRAZOLE 40 MG/10 ML VIAL INJ IV SCH (10:10)
[2022-11-05] MEDS: ZINC SULFATE 220mg CAP or TAB PO SCH (10:10)
[2022-11-05] MEDS: LISINOPRIL 5 MG TAB PO SCH (10:10)
[2022-11-05] MEDS: DOCUSATE SOD 100 MG CAP PO SCH ×2 (10:10→21:49)
[2022-11-05] MEDS: metFORMIN HYDROCHLORIDE 500 MG TAB PO SCH ×2 (10:10→17:42)
[2022-11-05] MEDS: methylPREDNISolone SOD SUCC 125 MG/2 ML VL IV SCH ×2 (10:11→21:48)
[2022-11-05] MEDS: ENOXAPARIN SOD 40 MG/0.4 ML SYRINGE SC SCH (10:11)
[2022-11-05 13:00] VITALS: BP 129/79
[2022-11-05 17:28] VITALS: BP 127/73
[2022-11-05] MEDS: ALBUTEROL SULF 2.5 MG/0.5ML(0.5%) NEB SOLN NEB SCH (18:34)
[2022-11-05] MEDS: IPRATROPIUM BROM 0.5 MG/2.5ML INH SOL NEB SCH (18:34)
[2022-11-05] MEDS: cefTRIAXone 1GM/50ML D5W 50 ML IV SCH (21:48)
[2022-11-05] MEDS: ATORVASTATIN 20 MG TAB PO SCH (21:49)
[2022-11-05 21:59] VITALS: BP 160/72
[2022-11-06] VITALS (7 sets, daily range): BP systolic 116–158; BP diastolic 54–91
[2022-11-06] MEDS ORDERED: ALBUTEROL MEDNEB 2.5 mg/3ml NEB ONE ×5 (00:14→23:49)
[2022-11-06] MEDS: IPRATROPIUM BROM 0.5 MG/2.5ML INH SOL NEB SCH ×4 (00:51→19:06)
[2022-11-06] MEDS: ALBUTEROL SULF 2.5 MG/0.5ML(0.5%) NEB SOLN NEB SCH ×4 (00:51→19:06)
[2022-11-06] MEDS: ACCU-CHEK COMFORT CURVE STRIP VI SCH ×4 (06:23→22:05)
[2022-11-06] MEDS: InsuLIN REG 1unit/0.01ml Soln (100units/ml) SC SCH ×4 (06:34→22:17)
[2022-11-06] MEDS: AZITHROMYCIN 500MG/ 250ML 250 ML IV SCH (09:55)
[2022-11-06] MEDS: metFORMIN HYDROCHLORIDE 500 MG TAB PO SCH ×2 (09:59→17:45)
[2022-11-06] MEDS: CHOLECALCIFEROL (VITD3) 2,000 UNIT CAP/TAB PO SCH (09:59)
[2022-11-06] MEDS: PANTOPRAZOLE 40 MG/10 ML VIAL INJ IV SCH (09:59)
[2022-11-06] MEDS: methylPREDNISolone SOD SUCC 125 MG/2 ML VL IV SCH ×2 (10:00→22:04)
[2022-11-06] MEDS: LISINOPRIL 5 MG TAB PO SCH (10:00)
[2022-11-06] MEDS: ZINC SULFATE 220mg CAP or TAB PO SCH (10:01)
[2022-11-06] MEDS: ENOXAPARIN SOD 40 MG/0.4 ML SYRINGE SC SCH (10:01)
[2022-11-06] MEDS: ASCORBIC ACID 500 MG TAB PO SCH ×2 (10:01→22:04)
[2022-11-06] MEDS: DOCUSATE SOD 100 MG CAP PO SCH ×2 (10:01→22:04)
[2022-11-06] MEDS: cefTRIAXone 1GM/50ML D5W 50 ML IV SCH (20:36)
[2022-11-06] MEDS: ATORVASTATIN 20 MG TAB PO SCH (22:04)
[2022-11-07] MEDS: IPRATROPIUM BROM 0.5 MG/2.5ML INH SOL NEB SCH ×6 (00:53→22:46)
[2022-11-07] MEDS: ALBUTEROL SULF 2.5 MG/0.5ML(0.5%) NEB SOLN NEB SCH ×6 (00:54→22:47)
[2022-11-07 05:00] VITALS: BP 134/86
[2022-11-07] MEDS ORDERED: ALBUTEROL MEDNEB 2.5 mg/3ml NEB ONE ×5 (05:48→22:20)
[2022-11-07] MEDS: ACCU-CHEK COMFORT CURVE STRIP VI SCH ×4 (06:37→21:21)
[2022-11-07] MEDS: InsuLIN REG 1unit/0.01ml Soln (100units/ml) SC SCH ×4 (06:42→21:34)
[2022-11-07 09:00] VITALS: BP 132/59
[2022-11-07] MEDS: metFORMIN HYDROCHLORIDE 500 MG TAB PO SCH ×2 (09:42→18:27)
[2022-11-07] MEDS: CHOLECALCIFEROL (VITD3) 2,000 UNIT CAP/TAB PO SCH (09:42)
[2022-11-07] MEDS: DOCUSATE SOD 100 MG CAP PO SCH ×2 (09:42→21:21)
[2022-11-07] MEDS: ZINC SULFATE 220mg CAP or TAB PO SCH (09:42)
[2022-11-07] MEDS: PANTOPRAZOLE 40 MG/10 ML VIAL INJ IV SCH (09:42)
[2022-11-07] MEDS: ASCORBIC ACID 500 MG TAB PO SCH ×2 (09:42→21:21)
[2022-11-07] MEDS: LISINOPRIL 5 MG TAB PO SCH (09:43)
[2022-11-07] MEDS: AZITHROMYCIN 500MG/ 250ML 250 ML IV SCH (09:43)
[2022-11-07] MEDS: ENOXAPARIN SOD 40 MG/0.4 ML SYRINGE SC SCH (09:44)
[2022-11-07] MEDS: methylPREDNISolone SOD SUCC 125 MG/2 ML VL IV SCH ×2 (10:29→21:20)
[2022-11-07] MEDS ORDERED: traMADol HCL 50 MG TAB PO PRN (10:45)
[2022-11-07 20:00] VITALS: BP 141/91
[2022-11-07] MEDS: cefTRIAXone 1GM/50ML D5W 50 ML IV SCH (20:50)
[2022-11-07] MEDS: ATORVASTATIN 20 MG TAB PO SCH (21:21)
[2022-11-07 22:00] VITALS: BP 127/78
[2022-11-08] MEDS ORDERED: ALBUTEROL MEDNEB 2.5 mg/3ml NEB ONE ×6 (02:38→21:43)
[2022-11-08] MEDS: IPRATROPIUM BROM 0.5 MG/2.5ML INH SOL NEB SCH ×6 (02:42→21:44)
[2022-11-08] MEDS: ALBUTEROL SULF 2.5 MG/0.5ML(0.5%) NEB SOLN NEB SCH ×6 (02:42→21:44)
[2022-11-08 05:00] VITALS: BP 126/54
[2022-11-08] MEDS: ACCU-CHEK COMFORT CURVE STRIP VI SCH ×4 (06:18→22:01)
[2022-11-08] MEDS: InsuLIN REG 1unit/0.01ml Soln (100units/ml) SC SCH ×4 (06:20→22:07)
[2022-11-08] MEDS: metFORMIN HYDROCHLORIDE 500 MG TAB PO SCH ×2 (07:47→18:40)
[2022-11-08] MEDS: CHOLECALCIFEROL (VITD3) 2,000 UNIT CAP/TAB PO SCH (08:48)
[2022-11-08] MEDS: ASCORBIC ACID 500 MG TAB PO SCH ×2 (08:48→22:01)
[2022-11-08] MEDS: DOCUSATE SOD 100 MG CAP PO SCH ×2 (08:48→22:00)
[2022-11-08] MEDS: LISINOPRIL 5 MG TAB PO SCH (08:49)
[2022-11-08] MEDS: AZITHROMYCIN 500MG/ 250ML 250 ML IV SCH (08:50)
[2022-11-08] MEDS: methylPREDNISolone SOD SUCC 125 MG/2 ML VL IV SCH ×2 (08:50→22:00)
[2022-11-08] MEDS: ZINC SULFATE 220mg CAP or TAB PO SCH (08:50)
[2022-11-08] MEDS: ENOXAPARIN SOD 40 MG/0.4 ML SYRINGE SC SCH (08:50)
[2022-11-08] MEDS: PANTOPRAZOLE 40 MG/10 ML VIAL INJ IV SCH (08:50)
[2022-11-08 09:00] VITALS: BP 155/81
[2022-11-08 13:00] VITALS: BP 128/80
[2022-11-08 17:00] VITALS: BP 113/69
[2022-11-08 20:00] VITALS: BP 117/55
[2022-11-08] MEDS: cefTRIAXone 1GM/50ML D5W 50 ML IV SCH (20:55)
[2022-11-08] MEDS: ATORVASTATIN 20 MG TAB PO SCH (22:00)
[2022-11-08 22:47] VITALS: BP 117/55
[2022-11-09] MEDS: ALBUTEROL SULF 2.5 MG/0.5ML(0.5%) NEB SOLN NEB SCH ×6 (02:08→22:08)
[2022-11-09] MEDS: IPRATROPIUM BROM 0.5 MG/2.5ML INH SOL NEB SCH ×6 (02:08→22:08)
[2022-11-09] MEDS ORDERED: ALBUTEROL MEDNEB 2.5 mg/3ml NEB ONE ×4 (02:08→21:47)
[2022-11-09 05:19] VITALS: BP 144/84
[2022-11-09] MEDS: ACCU-CHEK COMFORT CURVE STRIP VI SCH ×4 (06:26→21:56)
[2022-11-09] MEDS: InsuLIN REG 1unit/0.01ml Soln (100units/ml) SC SCH ×4 (06:31→22:00)
[2022-11-09 08:00] VITALS: BP 135/80
[2022-11-09] MEDS: metFORMIN HYDROCHLORIDE 500 MG TAB PO SCH ×2 (08:28→17:54)
[2022-11-09] MEDS: ASCORBIC ACID 500 MG TAB PO SCH ×2 (08:29→21:55)
[2022-11-09] MEDS: ZINC SULFATE 220mg CAP or TAB PO SCH (08:29)
[2022-11-09] MEDS: DOCUSATE SOD 100 MG CAP PO SCH ×2 (08:30→22:00)
[2022-11-09] MEDS: LISINOPRIL 5 MG TAB PO SCH (08:30)
[2022-11-09] MEDS: AZITHROMYCIN 250 MG TAB PO SCH (08:30)
[2022-11-09] MEDS: PANTOPRAZOLE 40 MG/10 ML VIAL INJ IV SCH (08:36)
[2022-11-09] MEDS: ENOXAPARIN SOD 40 MG/0.4 ML SYRINGE SC SCH (08:36)
[2022-11-09] MEDS: methylPREDNISolone SOD SUCC 125 MG/2 ML VL IV SCH ×2 (08:36→21:55)
[2022-11-09] MEDS: CHOLECALCIFEROL (VITD3) 2,000 UNIT CAP/TAB PO SCH (08:44)
[2022-11-09 12:00] VITALS: BP 122/73
[2022-11-09 16:00] VITALS: BP 122/79
[2022-11-09] MEDS: cefTRIAXone 1GM/50ML D5W 50 ML IV SCH (21:55)
[2022-11-09] MEDS: ATORVASTATIN 20 MG TAB PO SCH (21:55)
[2022-11-09 22:00] VITALS: BP 127/74
[2022-11-10] MEDS ORDERED: ALBUTEROL MEDNEB 2.5 mg/3ml NEB ONE ×4 (01:58→14:24)
[2022-11-10] MEDS: IPRATROPIUM BROM 0.5 MG/2.5ML INH SOL NEB SCH ×4 (02:16→16:02)
[2022-11-10] MEDS: ALBUTEROL SULF 2.5 MG/0.5ML(0.5%) NEB SOLN NEB SCH ×4 (02:16→16:02)
[2022-11-10 05:00] VITALS: BP_SYST 116; BP_SYST 129; BP_DIAS 56; BP_DIAS 75
[2022-11-10] MEDS: ACCU-CHEK COMFORT CURVE STRIP VI SCH ×2 (06:29→11:44)
[2022-11-10] MEDS: InsuLIN REG 1unit/0.01ml Soln (100units/ml) SC SCH ×2 (06:47→11:45)
[2022-11-10 08:05] VITALS: BP 134/81
[2022-11-10] MEDS: metFORMIN HYDROCHLORIDE 500 MG TAB PO SCH (09:25)
[2022-11-10] MEDS: ZINC SULFATE 220mg CAP or TAB PO SCH (09:25)
[2022-11-10] MEDS: AZITHROMYCIN 250 MG TAB PO SCH (09:25)
[2022-11-10] MEDS: ASCORBIC ACID 500 MG TAB PO SCH (09:25)
[2022-11-10] MEDS: DOCUSATE SOD 100 MG CAP PO SCH (09:25)
[2022-11-10] MEDS: LISINOPRIL 5 MG TAB PO SCH (09:26)
[2022-11-10] MEDS: CHOLECALCIFEROL (VITD3) 2,000 UNIT CAP/TAB PO SCH (09:28)
[2022-11-10] MEDS: PANTOPRAZOLE 40 MG/10 ML VIAL INJ IV SCH (09:29)
[2022-11-10] MEDS: ENOXAPARIN SOD 40 MG/0.4 ML SYRINGE SC SCH (09:29)
[2022-11-10] MEDS: methylPREDNISolone SOD SUCC 125 MG/2 ML VL IV SCH (09:29)
[2022-11-10 12:10] VITALS: BP 122/80
[2022-11-10] MEDS ORDERED: PANT40TA2 PO (12:24)
[2022-11-10] MEDS ORDERED: DEXT1SYP9 GT (12:24)
[2022-11-10] MEDS ORDERED: ALPR0.25 PO (12:24)
[2022-11-10] MEDS ORDERED: METH4PAK PO (12:24)
[2022-11-10] MEDS ORDERED: LEVO500T31 PO (12:28)
== END 2022-11-10 16:33 | disposition home or self-care (01) | DRG 193 ==
LOC: EDBD 17:35 → ER 17:35 → OVERFLOW 11-03 04:36 → TELE 11-03 09:36 → EAST 11-03 16:34 → WEST WING 11-03 21:01
PROVIDERS: ADMIT Nurse Practitioner; ATTEND Internal Medicine Geriatric Medicine
DX: J18.9 Pneumonia, unspecified organism (principal); J96.20 Acute and chronic respiratory failure, unspecified whether with hypoxia or hypercapnia; J44.1 Chronic obstructive pulmonary disease with (acute) exacerbation; J44.0 Chronic obstructive pulmonary disease with (acute) lower respiratory infection; E44.1 Mild protein-calorie malnutrition; Z20.822 Contact with and (suspected) exposure to COVID-19; F17.210 Nicotine dependence, cigarettes, uncomplicated; F41.9 Anxiety disorder, unspecified; E11.9 Type 2 diabetes mellitus without complications; I10 Essential (primary) hypertension; K43.9 Ventral hernia without obstruction or gangrene; Z86.16 Personal history of COVID-19; Z88.6 Allergy status to analgesic agent; Z99.81 Dependence on supplemental oxygen; Z68.26 Body mass index [BMI] 26.0-26.9, adult
CPT/HCPCS: 36415; 71045; 80048; 80053; 82962; 83735; 83880; 84484; 85025; 85379; 85610; 85730; 87426; 93005; 94640; 96365; 96367; 96372; 96375; 97116; 97163; 97530; C9113; G0378; J0696; J1815

== ENCOUNTER 2022-12-10 20:37 | Inpatient (IN) | payer OTHER ==
[~2022-12-10] VITALS: Ht 152.4 cm; Wt 69.0 kg
[~2022-12-10 20:37] MED LIST changes: +DEXT1SYP9 GT; +LEVO500T31 PO
[2022-12-10] MEDS ORDERED: methylPREDNISolone SOD SUCC 125 MG/2 ML VL IV ONE (21:00)
[2022-12-10] MEDS ORDERED: MORPHINE SULFATE 4 MG/ML SYR/VIAL IV ONE (21:00)
[2022-12-10] MEDS ORDERED: ONDANSETRON HCL 4 MG/2 ML VIAL IV ONE (21:00)
[2022-12-10 21:15] LABS: Basophils # (auto) 0.1 10 ^3/uL (0-0.2); Basophils % (auto) 0.6 % (0.0-2.0); Eosinophils # (auto) 0.1 10 ^3/uL (0-0.8); Eosinophils % (auto) 0.6 % (0.0-7.0); Hematocrit 39.8 % (36.0-46.0); Hemoglobin 12.9 g/dL (12.2-16.2); Lymphocytes # (auto) 2.3 10 ^3/uL (0.4-5.4); Lymphocytes % (auto) 14.1 % (10.0-50.0); Mean Corpuscular Hemoglobin 30.3 pg (28.0-32.0); Mean Corpuscular Hgb Conc. 32.4 g/dL (32.0-36.0); Mean Corpuscular Volume 93.4 fL (80.0-100.0); Monocytes # (auto) 1.7 10 ^3/uL (0-1.3); Monocytes % (auto) 10.5 % (0.0-12.0); Neutrophils # (auto) 12.2 10 ^3/uL (1.6-8.6); Neutrophils % (auto) 74.2 % (37.0-80.0); Red Blood Cells 4.26 10^6/uL (4.0-5.20); Red Cell Distribution Width 15.1 % (11.8-14.3); White Blood Cell 16.4 10^3/uL (4.4-10.8)
[2022-12-10 21:30] LABS: Albumin 3.2 g/dL (3.4-5.0); Potassium 3.9 mmol/L (3.5-5.1)
[2022-12-10 21:33] LABS: BUN/Creatinine Ratio 14.7; Bilirubin, Total 0.9 mg/dL (0.2-1.0); Total Protein 7.4 g/dL (6.4-8.2)
[2022-12-10] MEDS ORDERED: PIPERACILLIN-TAZOB 3.375GM 100 ML IV ONE (22:00)
[2022-12-10] MEDS ORDERED: IBUPROFEN 600 MG TAB PO PRN (23:15)
[2022-12-10] MEDS ORDERED: ALPRAZolam 0.25 MG TAB PO PRN (23:15)
[2022-12-10] MEDS ORDERED: diphenhdrAMINE HCL 50 MG/1 ML VL IV PRN (23:15)
[2022-12-10] MEDS ORDERED: SODIUM CHLORIDE 0.9% 1,000 ML IV SCH (23:15)
[2022-12-10] MEDS ORDERED: DOCUSATE SOD 100 MG CAP PO PRN (23:15)
[2022-12-10] MEDS ORDERED: ONDANSETRON HCL 4 MG/2 ML VIAL IV PRN (23:15)
[2022-12-10] MEDS ORDERED: DEXTROSE (50%) 50ML SYRG IV PRN (23:15)
[2022-12-11] MEDS ORDERED: MORPHINE SULFATE INJ 2 MG/ml SYRG IV PRN (00:15)
[2022-12-11] MEDS ORDERED: NITROGLYCERIN 0.4 MG SL TAB SL PRN (00:15)
[2022-12-11 06:17] LABS: Potassium 4.6 mmol/L (3.5-5.1)
[2022-12-11] MEDS: ACCU-CHEK COMFORT CURVE STRIP VI SCH ×4 (06:18→22:00)
[2022-12-11 06:20] LABS: Basophils # (auto) 0 10 ^3/uL (0-0.2); Basophils % (auto) 0.3 % (0.0-2.0); Eosinophils # (auto) 0 10 ^3/uL (0-0.8); Hemoglobin 11.9 g/dL (12.2-16.2); Lymphocytes # (auto) 0.8 10 ^3/uL (0.4-5.4); Lymphocytes % (auto) 5.8 % (10.0-50.0); Mean Corpuscular Hemoglobin 30.2 pg (28.0-32.0); Mean Corpuscular Hgb Conc. 32.9 g/dL (32.0-36.0); Mean Corpuscular Volume 91.8 fL (80.0-100.0); Monocytes # (auto) 0.2 10 ^3/uL (0-1.3); Monocytes % (auto) 1.2 % (0.0-12.0); Neutrophils % (auto) 92.7 % (37.0-80.0); Red Blood Cells 3.93 10^6/uL (4.0-5.20)
[2022-12-11 06:23] LABS: Albumin 2.9 g/dL (3.4-5.0); BUN/Creatinine Ratio 15.1; Calcium 8.6 mg/dL (8.5-10.1)
[2022-12-11 06:26] LABS: Bilirubin, Total 0.8 mg/dL (0.2-1.0); Total Protein 6.2 g/dL (6.4-8.2)
[2022-12-11] MEDS: methylPREDNISolone SOD SUCC 40 MG/ML VL IV SCH ×3 (06:39→23:32)
[2022-12-11] MEDS: InsuLIN REG 1unit/0.01ml Soln (100units/ml) SC SCH ×4 (06:40→22:00)
[2022-12-11 07:10] LABS: Urine Bacteria NONE SEEN /hpf (None Seen); Urine Blood Negative /uL (Negative); Urine Specific Gravity 1.017 (1.001-1.035); Urine WBC 1 /hpf (0 - 5)
[2022-12-11] MEDS: FAMOTIDINE (10MG/ML) 2ML VL IV SCH ×2 (09:35→23:33)
[2022-12-11] MEDS: cefTRIAXone 1GM/50ML D5W 50 ML IV SCH (09:36)
[2022-12-11] MEDS: AZITHROMYCIN 500MG/ 250ML 250 ML IV SCH (10:00)
[2022-12-11 13:00] VITALS: BP 156/90
[2022-12-11 13:18] VITALS: BP 156/90
[2022-12-11] MEDS ORDERED: ATOR40TA52 PO (13:35)
[2022-12-11 15:18] VITALS: BP 156/90
[2022-12-11 17:00] VITALS: BP 128/69
[2022-12-11] MEDS: ALBUTEROL SULF 2.5 MG/0.5ML(0.5%) NEB SOLN NEB SCH ×2 (18:22→22:12)
[2022-12-11] MEDS: IPRATROPIUM BROM 0.5 MG/2.5ML INH SOL NEB SCH ×2 (18:22→22:12)
[2022-12-11 22:00] VITALS: BP 152/73
[2022-12-12] VITALS (7 sets, daily range): BP systolic 120–135; BP diastolic 64–86
[2022-12-12] MEDS: ALBUTEROL SULF 2.5 MG/0.5ML(0.5%) NEB SOLN NEB SCH ×7 (01:57→23:20)
[2022-12-12] MEDS: IPRATROPIUM BROM 0.5 MG/2.5ML INH SOL NEB SCH ×7 (01:57→23:20)
[2022-12-12] MEDS: methylPREDNISolone SOD SUCC 40 MG/ML VL IV SCH ×3 (06:59→21:52)
[2022-12-12] MEDS: InsuLIN REG 1unit/0.01ml Soln (100units/ml) SC SCH ×4 (07:00→21:59)
[2022-12-12] MEDS: ACCU-CHEK COMFORT CURVE STRIP VI SCH ×4 (07:00→21:51)
[2022-12-12] MEDS: MORPHINE SULFATE INJ 2 MG/ml SYRG IV PRN (08:22)
[2022-12-12] MEDS: cefTRIAXone 1GM/50ML D5W 50 ML IV SCH (09:01)
[2022-12-12] MEDS: FAMOTIDINE (10MG/ML) 2ML VL IV SCH ×2 (10:03→21:51)
[2022-12-12] MEDS: AZITHROMYCIN 500MG/ 250ML 250 ML IV SCH (10:23)
[2022-12-12] MEDS: ALPRAZolam 0.25 MG TAB PO PRN (10:23)
[2022-12-12] MEDS ORDERED: guaiFENesin-DM 100/10mg/5ml SYR PO PRN (12:15)
[2022-12-13] MEDS: ALPRAZolam 0.25 MG TAB PO PRN (01:25)
[2022-12-13] MEDS: IPRATROPIUM BROM 0.5 MG/2.5ML INH SOL NEB SCH ×5 (02:07→19:51)
[2022-12-13] MEDS: ALBUTEROL SULF 2.5 MG/0.5ML(0.5%) NEB SOLN NEB SCH ×5 (02:07→19:51)
[2022-12-13 05:00] VITALS: BP 130/75
[2022-12-13] MEDS: methylPREDNISolone SOD SUCC 40 MG/ML VL IV SCH ×2 (05:07→12:58)
[2022-12-13] MEDS: ACCU-CHEK COMFORT CURVE STRIP VI SCH ×3 (06:15→17:00)
[2022-12-13] MEDS: InsuLIN REG 1unit/0.01ml Soln (100units/ml) SC SCH ×3 (06:19→17:00)
[2022-12-13 09:00] VITALS: BP 129/71
[2022-12-13] MEDS: FAMOTIDINE (10MG/ML) 2ML VL IV SCH (10:52)
[2022-12-13] MEDS: AZITHROMYCIN 500MG/ 250ML 250 ML IV SCH (10:52)
[2022-12-13] MEDS: cefTRIAXone 1GM/50ML D5W 50 ML IV SCH (10:52)
[2022-12-13] MEDS ORDERED: LEVO500T31 PO (11:05)
[2022-12-13] MEDS ORDERED: METH4PAK PO (11:05)
[2022-12-13] MEDS: MORPHINE SULFATE INJ 2 MG/ml SYRG IV PRN (12:49)
[2022-12-13 13:00] VITALS: BP 146/69
[2022-12-13 16:43] VITALS: BP 146/69
[2022-12-13 17:00] VITALS: BP 143/89
== END 2022-12-13 20:00 | disposition home or self-care (01) | DRG 871 ==
LOC: ER 20:37 → TELE 12-11 00:07 → TELE-CENTR 12-11 12:29
PROVIDERS: ADMIT Nurse Practitioner Family; ATTEND Internal Medicine Geriatric Medicine
DX: A41.9 Sepsis, unspecified organism (principal); J18.9 Pneumonia, unspecified organism; J96.21 Acute and chronic respiratory failure with hypoxia; J44.1 Chronic obstructive pulmonary disease with (acute) exacerbation; J44.0 Chronic obstructive pulmonary disease with (acute) lower respiratory infection; E11.9 Type 2 diabetes mellitus without complications; E78.5 Hyperlipidemia, unspecified; F41.9 Anxiety disorder, unspecified; I10 Essential (primary) hypertension; K44.9 Diaphragmatic hernia without obstruction or gangrene; Z90.49 Acquired absence of other specified parts of digestive tract; Z98.891 History of uterine scar from previous surgery; Z88.5 Allergy status to narcotic agent; Z88.8 Allergy status to other drugs, medicaments and biological substances; Z82.0 Family history of epilepsy and other diseases of the nervous system; Z83.3 Family history of diabetes mellitus; Z87.01 Personal history of pneumonia (recurrent); Z87.891 Personal history of nicotine dependence; Z88.6 Allergy status to analgesic agent; Z99.81 Dependence on supplemental oxygen; Z20.822 Contact with and (suspected) exposure to COVID-19
CPT/HCPCS: 36415; 71046; 80053; 81001; 82962; 83036; 83605; 83735; 83880; 84484; 85025; 87040; 87426; 94640; 96361; 96365; 96375; G0378; J0696; J1815; J2405; J2543; J3490